=== PATIENT | female | born 1935 | race Hispanic/Latino ===

== ENCOUNTER 2016-11-06 08:57 | Outpatient (CLI) | payer MEDICARE, OTHER ==
--- NOTE | 2016-11-06 15:32 | Mammography Report ---
BILATERAL DIGITAL SCREENING MAMMOGRAM with CAD : 11/06/16 08:57:00 CLINICAL: Routine screening. COMPARISON:11/05/15 FINDINGS: The breasts are heterogeneously dense, which may obscure small masses.Bilateral benign calcifications. No mass, architectural distortion or suspicious calcifications. IMPRESSION: No mammographic evidence of malignancy. BI-RADS CATEGORY: 2 -- Benign RECOMMENDATION: Routine mammographic screening in one year. COMMENT: Patient follow-up letters are generated by our [employer] application.
== END 2016-11-06 08:58 | disposition home or self-care (01) ==
LOC: SPVWC 08:57
PROVIDERS: ATTEND Internal Medicine
DX: Z12.31 Encounter for screening mammogram for malignant neoplasm of breast (principal); I10 Essential (primary) hypertension; E78.00 Pure hypercholesterolemia, unspecified
CPT/HCPCS: 77067; G0202

== ENCOUNTER 2017-06-13 11:14 | Outpatient (CLI) | payer MEDICARE, OTHER ==
--- NOTE | 2017-06-13 13:44 | Cat Scan Report ---
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 FINDINGS: Abdomen: Clear lung bases. Stable right upper pole posterior renal scar. A right lower pole 10 mm cyst image 136, series 1 is larger than on prior exams. No renal mass or calculus. The renal collecting systems and ureters are nondilated.Normal liver, bile ducts and gallbladder. Normal stomach, duodenum, pancreas and spleen. A stable 10 mm benign right adrenal adenoma. Normal left adrenal gland. Aortic calcification but no aneurysm. Normal inferior vena cava. The imaged portions of small bowel and colon are normal. No ascites. The bones are unremarkable. IMPRESSION:1. Status post right renal upper pole cryoablation. 2. A 10 mm right lower pole benign renal cyst. 3. Normal left kidney. 4. Stable benign right adrenal adenoma.
== END 2017-06-13 11:15 | disposition home or self-care (01) ==
LOC: SPVIMAG 11:14
PROVIDERS: ATTEND Urology
DX: D41.01 Neoplasm of uncertain behavior of right kidney (principal); D35.01 Benign neoplasm of right adrenal gland; N28.1 Cyst of kidney, acquired; I70.0 Atherosclerosis of aorta
CPT/HCPCS: 74150

== ENCOUNTER 2017-08-14 09:30 | Outpatient (CLI) | payer MEDICARE, OTHER ==
--- NOTE | 2017-08-14 16:52 | XRay Report ---
XRAY LEFT HAND THREE VIEWS: 08/14/17 09:30:00 CLINICAL: Left hand contusion. FINDINGS: Moderate diffuse osteopenia. An oblique displaced fracture of the fourth metacarpal. The major distal fracture fragment is displaced proximal to the major proximal fracture fragment and it is is place medially by at least one half shaft width. No callus. No underlying bone lesion. No other fractures are identified. 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 The carpal bones are intact. The distal radius and ulna are intact. No soft tissue air or foreign body. IMPRESSION: An acute/subacute closed displaced traumatic fracture of the fourth metacarpal.
== END 2017-08-14 09:31 | disposition home or self-care (01) ==
LOC: SPVIMAG 09:30
PROVIDERS: ATTEND Internal Medicine
DX: S62.305A Unspecified fracture of fourth metacarpal bone, left hand, initial encounter for closed fracture (principal); S60.222A Contusion of left hand, initial encounter; M85.842 Other specified disorders of bone density and structure, left hand; M18.9 Osteoarthritis of first carpometacarpal joint, unspecified; X58.XXXA Exposure to other specified factors, initial encounter; Y93.89 Activity, other specified; Y92.89 Other specified places as the place of occurrence of the external cause; Y99.8 Other external cause status

== ENCOUNTER 2017-09-03 07:12 | Outpatient (CLI) | payer MEDICARE, OTHER ==
--- NOTE | 2017-09-03 19:15 | Magnetic Resonance Report ---
FINAL REPORT EXAM: MR LUMBAR SPINE WO CON HISTORY: LUMBAR RADICULOPATHY/SPONDYLOLISTHASIS LUMBARSACRAL REGION TECHNIQUE: Multiplanar MRI of lumbar spine. No contrast administered. PRIORS: None. FINDINGS: Diffuse disc desiccation. Marked disc space narrowing and less severe endplate degenerative change in the L4-5. Remainder of lumbar disc spaces maintained. No loss of height or gross malalignment of lumbar vertebral bodies. Conus medullaris is in normal location and has normal contour and signal intensity. Possible subcentimeter, right renal cyst. L1-L2: Small, annular bulge without significant disc bulge or protrusion. No significant central spinal stenosis or neural foraminal narrowing. L2-L3: No apparent disc bulge or protrusion. No significant central spinal stenosis or neural foraminal narrowing. L3-L4: Slight foraminal bulging without posterior disc bulge or protrusion. No significant central spinal stenosis or neural foraminal narrowing. L4-L5: Small disc-osteophyte complex. Mild hypertrophic degenerative change of posterior elements. Mild central spinal canal and bilateral neural foraminal narrowing. L5-S1: Small, generalized disc bulge. Mild-moderate hypertrophic degenerative change of posterior elements. Mild-moderate central spinal canal and bilateral neural foraminal narrowing. IMPRESSION: 1. Degenerative disc disease and spondylosis. Please see above for details at individual levels. 2. Small disc bulges in the L4-S1 levels and mild-moderate central spinal stenosis in the L5-S1 level. 3. No other significant central spinal canal compromise.
== END 2017-09-03 07:13 | disposition home or self-care (01) ==
LOC: MRI 07:12
PROVIDERS: ATTEND Orthopaedic Surgery
DX: M48.061 Spinal stenosis, lumbar region without neurogenic claudication (principal); M51.36 Other intervertebral disc degeneration, lumbar region; M51.26 Other intervertebral disc displacement, lumbar region; M54.16 Radiculopathy, lumbar region; M43.17 Spondylolisthesis, lumbosacral region; M47.896 Other spondylosis, lumbar region
CPT/HCPCS: 72148

== ENCOUNTER 2017-11-07 08:15 | Outpatient (CLI) | payer MEDICARE, OTHER ==
--- NOTE | 2017-11-08 11:10 | Mammography Report ---
BILATERAL DIGITAL SCREENING MAMMOGRAM with CAD : 11/07/17 08:15:00 CLINICAL: Routine screening.Previous left benign surgical excision. COMPARISON:11/06/16 FINDINGS: The breasts are heterogeneously dense, which may obscure small masses.Bilateral benign calcifications. Stable left outer benign postsurgical scar. No mass, architectural distortion or suspicious calcifications. IMPRESSION: No mammographic evidence of malignancy. BI-RADS CATEGORY: 2 -- Benign RECOMMENDATION: Routine mammographic screening in one year. COMMENT: Patient follow-up letters are generated by our [employer] application.
== END 2017-11-07 08:16 | disposition home or self-care (01) ==
LOC: SPVWC 08:15
PROVIDERS: ATTEND Internal Medicine
DX: Z12.31 Encounter for screening mammogram for malignant neoplasm of breast (principal); I10 Essential (primary) hypertension; E78.00 Pure hypercholesterolemia, unspecified
CPT/HCPCS: 77067

== ENCOUNTER 2017-12-17 06:45 | Outpatient (CLI) | payer MEDICARE, OTHER ==
--- NOTE | 2017-12-17 08:49 | Cat Scan Report ---
CT ABDOMEN PELVIS WITHOUT CONTRAST: HISTORY: System kidney. COMPARISON: 12/27/16, 06/13/17. TECHNIQUE: Helical CT in 1.25mm intervals without IV contrast. Sagittal and coronal reconstructions. FINDINGS: Lung bases: Normal. Liver: Normal. Biliary system: Normal. Pancreas: Normal. Spleen: Normal. Kidneys/ureters/bladder: Cryoablation site at the superior pole of the right kidney is unchanged with no evidence of recurrence. The kidneys are normal size and position. 1 cm cortical cyst at the inferior pole the right kidney is unchanged. Tiny 4 mm hemorrhagic cyst near mid pole of the left kidney is noted and unchanged. No evidence for new cyst, large hypervascular mass, nephrolithiasis or hydronephrosis. The ureters and bladder are unremarkable. Adrenal glands: Normal. Aorta: Normal. Intestines: Within normal limits given no oral contrast was administered. Appendix: Not confidently identified, correlate with surgical history. Pelvic viscera: The uterus and ovaries are unremarkable. A 1.5 cm nabothian cyst is noted in the left side of the cervix. Ascites: None. Adenopathy: None. Musculoskeletal: Intact. Mild thoracolumbar spondylosis is noted. IMPRESSION: Stable appearance of the cryoablation site at the superior pole of the right kidney. No change in the 1 cm right renal cyst and tiny hemorrhagic cyst in the mid left kidney. No significant change since 06/13/17.
== END 2017-12-17 06:46 | disposition home or self-care (01) ==
LOC: CT 06:45
PROVIDERS: ATTEND Urology
DX: N28.1 Cyst of kidney, acquired (principal); M47.895 Other spondylosis, thoracolumbar region; I10 Essential (primary) hypertension; E78.00 Pure hypercholesterolemia, unspecified; M19.90 Unspecified osteoarthritis, unspecified site; Z90.12 Acquired absence of left breast and nipple
CPT/HCPCS: 74176

== ENCOUNTER 2018-11-14 11:52 | Outpatient (CLI) | payer MEDICARE, OTHER ==
--- NOTE | 2018-11-14 13:49 | Mammography Report ---
BILATERAL DIGITAL SCREENING MAMMOGRAM WITH CAD INDICATION: Routine screening mammography. TECHNIQUE: Digital bilateral 2D mammography was obtained in the craniocaudal and mediolateral obliq ue projections. This examination was interpreted with the benefit of Computer-Aided Detection analysi s. COMPARISON: 11/05/2015 FINDINGS: Breast Density: The breasts are heterogeneously dense, which may obscure small masses. No mass, architectural distortion or suspicious calcifications. Scattered bilateral benign calcificat ions. IMPRESSION:No mammographic evidence of malignancy. BI-RADS Category 2: Benign. No mammographic evidence of malignancy. Recommend routine screening ma mmography in one year. A "normal" or negative report should not discourage follow up or biopsy of a clinically significant f inding. A written summary of these findings will be mailed to the patient. The patient will be entered into a mammography reporting system which will generate a reminder letter for the patient's next appointmen t at the appropriate interval. The [employer] recommends yearly mammograms starting at age 40 and continuing as l fco as a woman is in good health. Breast MRI is recommended for women with an approximate 20-25% or greater lifetime risk of breast cancer, including women with a strong family history of breast or ova andrew cancer or who have been treated for Hodgkin's disease. Signer Name: Yaron Pinon MD Signed: 11/14/2018 1:45 PM Workstation Name: [id number]
== END 2018-11-14 11:53 | disposition home or self-care (01) ==
LOC: SPVWC 11:52
PROVIDERS: ATTEND Internal Medicine
DX: Z12.31 Encounter for screening mammogram for malignant neoplasm of breast (principal); E78.00 Pure hypercholesterolemia, unspecified; I10 Essential (primary) hypertension
CPT/HCPCS: 77067

== ENCOUNTER 2020-10-12 09:56 | Outpatient (CLI) | payer MEDICARE, OTHER ==
--- NOTE | 2020-10-12 11:46 | Cat Scan Report ---
CT abdomen pelvis wo con INDICATION: MALIGNANT NEOPLASMOF RIGHT KIDNEY,EXCEPT RENAL. COMPARISON: October 01, 2019 TECHNIQUE: Abdominal and pelvic CT exam performed. All CT scans at this location are performed using CT dose reduction for ALARA by means of automated exposure control. FINDINGS: CT ABDOMEN and PELVIS: Lung Bases: No significant abnormality. Liver: No significant abnormality. Biliary: No significant abnormality. Spleen: No significant abnormality. Pancreas: No significant abnormality. Adrenals: Unchanged 1 cm right adrenal adenoma. Kidneys: Patient had prior cryoablation of the right superior pole. No suspicious lesion is seen. Kid neys are unchanged. Lymphatics: No lymphadenopathy. Vasculature: Mild atherosclerosis. No aneurysm. Bowel: No significant abnormality. Normal appendix. Pelvis: No significant abnormality. Osseous Structures: No aggressive osseous lesion. Grade 1 degenerative anterolisthesis of L5 on S1. N o acute findings. Additional Findings: None IMPRESSION: 1. No no evidence for recurrence or metastasis. Signer Name: Miguel Ángel Diaz MD Signed: 10/12/2020 11:42 AM Workstation Name: [id number]
== END 2020-10-12 09:57 | disposition home or self-care (01) ==
LOC: CT 09:56
PROVIDERS: ATTEND Urology
DX: C64.1 Malignant neoplasm of right kidney, except renal pelvis (principal); I70.0 Atherosclerosis of aorta; M43.16 Spondylolisthesis, lumbar region
CPT/HCPCS: 74176

== ENCOUNTER 2020-12-17 08:33 | Outpatient (CLI) | payer MEDICARE, OTHER ==
--- NOTE | 2020-12-17 11:21 | Mammography Report ---
DIGITAL SCREENING MAMMOGRAM WITH CAD, 12/17/2020 CLINICAL INFORMATION / INDICATION: Routine screening mammography. SCREENING MAMMO TECHNIQUE: Digital bilateral 2D mammography was obtained in the craniocaudal and mediolateral obliqu e projections. This examination was interpreted with the benefit of Computer-Aided Detection analysis . COMPARISON: 11/14/2018, 11/18/2019 FINDINGS: Breast Density: The breasts are heterogeneously dense, which may obscure small masses. No dominant mass, suspicious calcifications, or architectural distortion in either breast. Postoperative scarring is again noted in the left breast. There are scattered bilateral calcification s. IMPRESSION: No mammographic evidence of malignancy. Follow up recommendation: Routine yearly BI-RADS Category 2: Benign. A "normal" or negative report should not discourage follow up or biopsy of a clinically significant f inding. A written summary of these findings will be mailed to the patient. The patient will be entered into a mammography reporting system which will generate a reminder letter for the patient's next appointmen t at the appropriate interval. The [employer] recommends yearly mammograms starting at age 40 and continuing as l fco as a woman is in good health. Breast MRI is recommended for women with an approximate 20-25% or greater lifetime risk of breast cancer, including women with a strong family history of breast or ova andrew cancer or who have been treated for Hodgkin's disease. Signer Name: Sree Bruno MD Signed: 12/17/2020 11:16 AM Workstation Name: [id number]
== END 2020-12-17 08:34 | disposition home or self-care (01) ==
LOC: SPVWC 08:33
PROVIDERS: ATTEND Internal Medicine
DX: Z12.31 Encounter for screening mammogram for malignant neoplasm of breast (principal); N64.89 Other specified disorders of breast
CPT/HCPCS: 77067

== ENCOUNTER 2021-12-20 09:47 | Outpatient (CLI) | payer MEDICARE, OTHER ==
--- NOTE | 2021-12-22 08:33 | Mammography Report ---
DIGITAL SCREENING MAMMOGRAM WITH CAD, 12/20/2021 CLINICAL INFORMATION / INDICATION: Routine screening mammography. SCREENING MAMMO TECHNIQUE: Digital bilateral 2D mammography was obtained in the craniocaudal and mediolateral obliqu e projections. This examination was interpreted with the benefit of Computer-Aided Detection analysis . COMPARISON: 12/17/2020, 11/18/2019, 11/14/2018. FINDINGS: Breast Density: The breasts are heterogeneously dense, which may obscure small masses. No dominant mass, suspicious calcifications, or architectural distortion in the left breast. Bilateral benign-appearing calcification. Postbiopsy change left breast. Focal asymmetric far posteri milton and just medial to the nipple on the CC view only. IMPRESSION: Right breast asymmetry. Follow up recommendation: Special View: Spot Compression BI-RADS Category 0: INCOMPLETE. Needs additional imaging evaluation and/or prior mammograms for richa rison. A "normal" or negative report should not discourage follow up or biopsy of a clinically significant f inding. A written summary of these findings will be mailed to the patient. The patient will be entered into a mammography reporting system which will generate a reminder letter for the patient's next appointmen t at the appropriate interval. The [employer] recommends yearly mammograms starting at age 40 and continuing as l fco as a woman is in good health. Breast MRI is recommended for women with an approximate 20-25% or greater lifetime risk of breast cancer, including women with a strong family history of breast or ova andrew cancer or who have been treated for Hodgkin's disease. Signer Name: Peter Renteria MD Signed: 12/22/2021 8:28 AM Workstation Name: [id number]
== END 2021-12-20 09:48 | disposition home or self-care (01) ==
LOC: SPVWC 09:47
PROVIDERS: ATTEND Internal Medicine
DX: Z12.31 Encounter for screening mammogram for malignant neoplasm of breast (principal)
CPT/HCPCS: 77067

== ENCOUNTER 2022-01-18 08:51 | Outpatient (CLI) | payer MEDICARE, OTHER ==
--- NOTE | 2022-01-18 10:17 | Mammography Report ---
DIGITAL DIAGNOSTIC MAMMOGRAM WITH CAD CONVENTIONAL, 01/18/2022 CLINICAL INFORMATION / INDICATION: Callback for ABNORMAL MAMMO R92.8 TECHNIQUE: Digital right mammographic imaging was performed. Spot compression views were obtained. This examination was interpreted with the benefit of Computer-aided Detection analysis. COMPARISON: December 20, 2021 FINDINGS: Breast Density: The breasts are heterogeneously dense, which may obscure small masses. Previously seen asymmetry dissipates on spot compression indicating normal overlapping tissue. IMPRESSION: No mammographic evidence of malignancy. Follow up recommendation: Back to schedule. BI-RADS Category 1: NEGATIVE. A "normal" or negative report should not discourage follow up or biopsy of a clinically significant f inding. A written summary of these findings will be mailed to the patient. The patient will be entered into a mammography reporting system which will generate a reminder letter for the patient's next appointmen t at the appropriate interval. According to the [employer], yearly mammograms are recommended starting at age 40 and continuing as long as a woman is in good health. Breast MRI is recommended for women with an michael roximately 20-25% or greater lifetime risk of breast cancer, including women with a strong family his tory of breast or ovarian cancer and women who have been treated for Hodgkin's disease. Signer Name: Dick Cruz DO Signed: 01/18/2022 10:13 AM Workstation Name: [id number]
== END 2022-01-18 08:52 | disposition home or self-care (01) ==
LOC: SPVWC 08:51
PROVIDERS: ATTEND Internal Medicine
DX: R92.8 Other abnormal and inconclusive findings on diagnostic imaging of breast (principal)